=== PATIENT | male | born 2000 | race Caucasian/White ===

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

== ENCOUNTER 2019-02-18 22:01 | Inpatient (IN) | payer MEDICAID ==
[~2019-02-18] VITALS: Ht 180.3 cm; Wt 58.5 kg
[~2019-02-18 22:01] MED LIST: HYDR-3237 PO
--- NOTE | 2019-02-18 22:25 | NUR ---
ASSESSMENT MADE. ERP AT BEDSIDE. C/O SI/SA.URINE OBTAINED AND SENT TO LAB.
--- NOTE | 2019-02-18 22:28 | NUR ---
ALL BELONGINGS REMOVED , 2 PLASTIC BAGS AND PLACED IN LOCKER.
--- NOTE | 2019-02-18 22:28 | NUR ---
PATIENT TOOK ALL HIS PAIN MEDICATION ( PERCOCET ) YESTERDAY AND TRIED TO DROWN HIMSELF IN THE BATHROOM.
--- NOTE | 2019-02-18 22:32 | NUR ---
SBAR report received from anali RNVicente. Pt resting on mallory parekh and mini lab operator at bedside. Urine sent to lab.
[2019-02-18 22:56] LABS: AMPHETAMINE SCREEN, URINE Negative (Negative); BARBITURATE SCREEN, URINE Negative (Negative); BENZODIAZEPINE SCREEN, URINE Negative (Negative); CANNABINOID SCREEN, URINE Negative (Negative); COCAINE SCREEN, URINE Negative (Negative); METHADONE SCREEN, URINE Negative (Negative); OPIATE SCREEN, URINE Positive (Negative)
[2019-02-18 23:14] LABS: ALANINE AMINOTRANSFERASE 26 U/L (12-78); ALBUMIN 3.9 g/dL (3.4-5.0); ANION GAP 5 mmol/L (5-15); CALCIUM 8.9 mg/dL (8.5-10.1); CHLORIDE 108 mmol/L (98-107); SALICYLATE LEVEL 1.8 mg/dL (2.8-20.0)
[2019-02-18 23:17] LABS: ACETAMINOPHEN < 2 mcg/mL (10-30); ALKALINE PHOSPHATASE 78 U/L (45-117); BILIRUBIN,TOTAL 0.3 mg/dL (0.2-1.0); CREATININE 0.92 mg/dL (0.7-1.3); TOTAL PROTEIN 8.3 g/dL (6.4-8.2)
[2019-02-18 23:45] LABS: BASOPHILS # (AUTO) 0.02 x10^3/uL (0-0.3); BASOPHILS % (AUTO) 0 % (0-1); EOSINOPHILS # (AUTO) 0.07 x10^3/uL (0-0.8); EOSINOPHILS % (AUTO) 1 % (1-7); LYMPHOCYTES # (AUTO) 2.22 x10^3/uL (1-6.1); LYMPHOCYTES % (AUTO) 26 % (22-44); MD NO; MEAN CORPUSCULAR HEMOGLOBIN 29.6 pg (27.5-34.5); MEAN CORPUSCULAR HGB CONC 32.9 g/dL (33.2-36.2); MEAN CORPUSCULAR VOLUME 90.1 fL (81-97); MEAN PLATELET VOLUME 6.9 fL (7.4-10.4); MONOCYTES % (AUTO) 11 % (2-9); NEUTROPHILS # (AUTO) 5.32 x10^3/uL (1.8-8.0); NEUTROPHILS % (AUTO) 62 % (42-75); PLATELET COUNT 280 x10^3/uL (130-400); RED BLOOD COUNT 5.22 x10^6/uL (4.38-5.82)
--- NOTE | 2019-02-19 00:10 | NUR ---
Pt resting on gurney, calm and cooperative. Mom at bedside.
--- NOTE | 2019-02-19 00:33 | NUR ---
Dr. Sorensen at bedside to discuss ED findings and POC.
--- NOTE | 2019-02-19 00:55 | NUR ---
SBAR report given to Dr. Camacho, SOC. Robot in room.
--- NOTE | 2019-02-19 01:00 | NUR ---
Pt speaking with Dr. Silveira, SOC.
--- NOTE | 2019-02-19 02:29 | NUR ---
Patient with medicaid traditional insurance so packet faxed to [facility] and Tima Naylor. Conformations received
[2019-02-19] MEDS ORDERED: DOCUSATE 100 MG CAPSULE PO PRN (02:30)
[2019-02-19] MEDS ORDERED: LORazepam 2 MG/ML, 1ML IM PRN (02:30)
[2019-02-19] MEDS ORDERED: ONDANSETRON ODT 4 MG PO PRN (02:30)
--- NOTE | 2019-02-19 02:35 | NUR ---
PT SLEEPING AT THIS TIME. SITTER AT DOORWAY AND WILL CONT TO MONITOR.
--- NOTE | 2019-02-19 02:42 | NUR ---
Rosetta De La Torre - for updates
--- NOTE | 2019-02-19 04:30 | NUR ---
PT SLEEPING AT THIS TIME. SITTER AT DOORWAY AND WILL CONT TO MONITOR.
--- NOTE | 2019-02-19 04:38 | NUR ---
REPORT FROM ANAND BINGHAM. PT SLEEPING WITH NO NEEDS AT THIS TIME. SITTER IN VIEW OF PT.
--- NOTE | 2019-02-19 05:57 | NUR ---
PT SLEEPING. EVEN RISE AND FALL OF CHEST OBSERVED. SITTER IN VIEW OF PT.
--- NOTE | 2019-02-19 07:22 | NUR ---
PT SLEEPING, MEAL ORDERED
[2019-02-19] MEDS: NICOTINE 7 MG/24 HR PATCH.TD24 TD SCH (08:30)
--- NOTE | 2019-02-19 08:49 | NUR ---
WOKE PT, BREAFAST GIVEN, PT STATES HE IS NOT HUNGRY. PT COOPERATIVE, CALM
--- NOTE | 2019-02-19 09:15 | NUR ---
MOTHER IN ROOM
--- NOTE | 2019-02-19 10:55 | NUR ---
REPORT TO 2N BELONGINGS GIVEN TO PT'S MOTHER.
[2019-02-19 11:16] VITALS: BP 101/65
[2019-02-19 19:35] VITALS: BP 107/59
[2019-02-19] MEDS: LORazepam 1MG TABLET PO PRN (20:56)
[2019-02-20 08:18] VITALS: BP 99/67
[2019-02-20] MEDS: NICOTINE 7 MG/24 HR PATCH.TD24 TD SCH (08:30)
[2019-02-20] MEDS: LORazepam 1MG TABLET PO PRN ×2 (08:42→16:52)
[2019-02-20 19:26] VITALS: BP 100/66
[2019-02-21 08:00] VITALS: BP 100/60
[2019-02-21] MEDS: NICOTINE 7 MG/24 HR PATCH.TD24 TD SCH (08:30)
== END 2019-02-21 13:44 | DRG 918 ==
LOC: ED 22:39 → EDIP 02-19 01:35 → 2N 02-19 11:13
PROVIDERS: ADMIT Internal Medicine; ATTEND Internal Medicine
DX: T40.2X2A Poisoning by other opioids, intentional self-harm, initial encounter (principal); T75.1XXA Unspecified effects of drowning and nonfatal submersion, initial encounter; R45.851 Suicidal ideations; F17.210 Nicotine dependence, cigarettes, uncomplicated; F32.9 Major depressive disorder, single episode, unspecified; X71.0XXA Intentional self-harm by drowning and submersion while in bathtub, initial encounter; Y93.89 Activity, other specified; Y92.89 Other specified places as the place of occurrence of the external cause; Y99.8 Other external cause status; Z81.8 Family history of other mental and behavioral disorders
CPT/HCPCS: 36415; 80053; 80307; 85025; 99285; G0378

== ENCOUNTER 2020-05-16 22:30 | Emergency (ER) | payer MEDICAID ==
[~2020-05-16] VITALS: Ht 180.3 cm; Wt 61.6 kg
--- NOTE | 2020-05-16 22:45 | NUR ---
assumed care of pt. pt here for SI. pt states that he wants to end his life and his current plan is to lay down on the train tracks and wait for the train to come and run him over. pt reports that he has a hx of SA x2. his first attemts was an OD on OTC sleeping pills when he was 14. pt also reports that he has a hx of a SA in which he overdosed on pills while in the bath in an attempt to drown himself. pt has no official psych Dx and takes not medications. pt denies halucinations/delusions. states that he "is manipulative and does not know how to stop". pt denies injury and has no physical c/o at this time. no apparent distress. no family at bedside. pt undressed and belongings secured. room secured and sitter present for safety. pt updated on POC Dr. Felipe has been to bedside for eval
--- NOTE | 2020-05-16 23:12 | NUR ---
report to Natasha BINGHAM
--- NOTE | 2020-05-16 23:15 | NUR ---
REPORT FROM SHANNON BINGHAM. PT RESTING. LAB AT BEDSIDE. SITTER IN VIEW OF PT.
[2020-05-16 23:23] LABS: BASOPHILS # (AUTO) 0.03 x10^3/uL (0-0.1); BASOPHILS % (AUTO) 0 % (0-1); EOSINOPHILS # (AUTO) 0.41 x10^3/uL (0-0.4); EOSINOPHILS % (AUTO) 5 % (1-7); LYMPHOCYTES # (AUTO) 3.07 x10^3/uL (1-3.4); LYMPHOCYTES % (AUTO) 39 % (22-44); MD NO; MEAN CORPUSCULAR HEMOGLOBIN 29.7 pg (27.5-34.5); MEAN CORPUSCULAR HGB CONC 32.9 g/dL (33.2-36.2); MEAN CORPUSCULAR VOLUME 90.2 fL (81-97); MEAN PLATELET VOLUME 7.3 fL (7.4-10.4); MONOCYTES # (AUTO) 0.65 x10^3/uL (0.2-0.8); MONOCYTES % (AUTO) 8 % (2-9); NEUTROPHILS # (AUTO) 3.68 x10^3/uL (1.8-6.8); NEUTROPHILS % (AUTO) 47 % (42-75); PLATELET COUNT 240 x10^3/uL (130-400); RED BLOOD COUNT 4.59 x10^6/uL (4.38-5.82); RED CELL DISTRIBUTION WIDTH 12.7 % (9.4-14.8)
[2020-05-16 23:30] LABS: ALBUMIN 3.4 g/dL (3.4-5.0); ANION GAP 6 mmol/L (5-15); CALCIUM 8.4 mg/dL (8.5-10.1); CHLORIDE 110 mmol/L (98-107); CREATININE 0.89 mg/dL (0.7-1.3)
--- NOTE | 2020-05-16 23:30 | NUR ---
SUKHDEEP RN: [facility] IS REVIEWING PT'S INFORMATION FOR ADMIT
[2020-05-16 23:32] LABS: SALICYLATE LEVEL < 1.7 mg/dL (2.8-20.0)
--- NOTE | 2020-05-17 00:05 | NUR ---
PT RESTING IN BED IN NAD. EVEN RISE AND FALL OF CHEST OBSERVED. SITTER IN VIEW OF PT.
--- NOTE | 2020-05-17 01:31 | NUR ---
PT RESTING IN BED IN NAD. EVEN RISE AND FALL OF CHEST OBSERVED. SITTER IN VIEW OF PT.
--- NOTE | 2020-05-17 01:51 | NUR ---
TELEPSYCH CAMERA PLACE IN ROOM. PT EDUCATED ON PROCESS. PT AWARE THAT UA IS STILL NEEDED. SITTER IN VIEW OF PT.
--- NOTE | 2020-05-17 02:44 | NUR ---
PT RESTING. EVEN RISE AND FALL OF CHEST OBSERVED. SITTER IN VIEW OF PT
--- NOTE | 2020-05-17 04:10 | NUR ---
PT EVALUATD BY TELEPSYCH. WAITING FOR RECOMMEDATION. PT SLEEPING IN NAD. SITTER IN VIEW OF PT.
--- NOTE | 2020-05-17 05:06 | NUR ---
PT RESTING IN BED IN NAD. EVEN RISE AND FALL OF CHEST OBSERVED. SITTER IN VIEW OF PT.
--- NOTE | 2020-05-17 06:17 | NUR ---
PT RESTING IN BED IN NAD. EVEN RISE AND FALL OF CHEST OBSERVED. SITTER IN VIEW OF PT.
--- NOTE | 2020-05-17 06:56 | NUR ---
TOOK REPORT FROM WINDY ANDERSEN RN, ASSUME CARE.
--- NOTE | 2020-05-17 07:15 | NUR ---
ROOM IS SAFE AND SECURE, PT CALM SLEEPING, RR EVEN AND UNLABORED. TAI SITTER OUTSIDE ROOM.
[2020-05-17 09:15] VITALS: BP 101/64
== END 2020-05-17 09:41 | disposition home or self-care (01) ==
LOC: ED 05-17 02:20
DX: R45.851 Suicidal ideations (principal); F32.9 Major depressive disorder, single episode, unspecified; F41.9 Anxiety disorder, unspecified
CPT/HCPCS: 36415; 80048; 80307; 82040; 85025; 99284

== ENCOUNTER 2020-05-17 07:29 | Inpatient (IN) | payer MEDICAID ==
[~2020-05-17] VITALS: Ht 180.3 cm; Wt 61.0 kg
[2020-05-17] MEDS ORDERED: ACETAMINOPHEN 325 MG TABLET PO PRN (09:00)
[2020-05-17] MEDS ORDERED: DOCUSATE 100 MG CAPSULE PO PRN (09:00)
[2020-05-17] MEDS ORDERED: POLYETHYLENE GLYCOL 17 GM PACKET PO PRN (09:00)
[2020-05-17] MEDS ORDERED: ONDANSETRON ODT 4 MG PO PRN (09:00)
[2020-05-17] MEDS ORDERED: PLEASE ENTER HEIGHT AND WEIGHT MC SCH ×2 (10:30→13:30)
[2020-05-17 10:34] VITALS: BP 91/58
[2020-05-17 11:26] LABS: ALBUMIN 3.7 g/dL (3.4-5.0); BILIRUBIN, DIRECT 0.2 mg/dL (0.1-0.2)
[2020-05-17 11:52] LABS: BILIRUBIN,INDIRECT 0.7 mg/dL (0.0-2.0); BILIRUBIN,TOTAL 0.9 mg/dL (0.2-1.0); CHOL/HDL RATIO 2.6; TOTAL PROTEIN 7.4 g/dL (6.4-8.2)
[2020-05-17 11:53] LABS: FREE T4 (FREE THYROXINE) 1.05 ng/dL (0.76-1.46); LDL/HDL RATIO 1.3 (0.5-3.0)
[2020-05-17] MEDS ORDERED: NICOTINE 14MG/24 HR PATCH.TD24 ONE (12:55)
[2020-05-17] MEDS: NICOTINE 14MG/24 HR PATCH.TD24 TD SCH (13:00)
[2020-05-17] MEDS: HYDROXYZINE PAMOATE 25MG CAP PO PRN ×2 (13:00→20:20)
[2020-05-17] MEDS: BUSPIRONE 5 MG TABLET PO SCH ×3 (15:05→20:20)
[2020-05-17 18:37] VITALS: BP 103/68
[2020-05-17] MEDS: TRAZODONE 100MG TABLET PO PRN (20:20)
[2020-05-17] MEDS: GABAPENTIN 100 MG CAPSULE PO PRN (20:20)
[2020-05-18 06:44] VITALS: BP 96/60
[2020-05-18 07:30] VITALS: BP 104/65
[2020-05-18] MEDS: BUSPIRONE 5 MG TABLET PO SCH ×3 (08:00→20:27)
[2020-05-18 09:08] LABS: MICROSCOPIC NOT IND
[2020-05-18 09:26] LABS: BARBITURATE SCREEN, URINE Negative (Negative); BENZODIAZEPINE SCREEN, URINE Negative (Negative); CANNABINOID SCREEN, URINE Negative (Negative); COCAINE SCREEN, URINE Negative (Negative); METHADONE SCREEN, URINE Negative (Negative)
[2020-05-18 09:29] LABS: AMPHETAMINE SCREEN, URINE Negative (Negative); OPIATE SCREEN, URINE Negative (Negative)
[2020-05-18] MEDS: NICOTINE 14MG/24 HR PATCH.TD24 TD SCH (13:28)
[2020-05-18 20:07] VITALS: BP 115/80
[2020-05-18] MEDS: GABAPENTIN 100 MG CAPSULE PO PRN (20:27)
[2020-05-18] MEDS: TRAZODONE 100MG TABLET PO PRN (20:27)
[2020-05-18] MEDS: HYDROXYZINE PAMOATE 25MG CAP PO PRN (20:28)
[2020-05-19 06:53] VITALS: BP 106/69
[2020-05-19] MEDS: BUSPIRONE 5 MG TABLET PO SCH ×3 (08:29→20:46)
[2020-05-19] MEDS: NICOTINE 14MG/24 HR PATCH.TD24 TD SCH (13:24)
[2020-05-19] MEDS: LORazepam 0.5MG TABLET PO PRN ×2 (14:13→20:42)
[2020-05-19 19:32] VITALS: BP 104/71
[2020-05-19] MEDS: TRAZODONE 100MG TABLET PO PRN (20:42)
[2020-05-19] MEDS: GABAPENTIN 100 MG CAPSULE PO PRN (20:42)
[2020-05-20 07:56] VITALS: BP 106/70
[2020-05-20] MEDS: BUSPIRONE 5 MG TABLET PO SCH (09:41)
[2020-05-20] MEDS ORDERED: GABA-826 PO (12:10)
[2020-05-20] MEDS ORDERED: BUSP5TAB2 PO (12:10)
[2020-05-20] MEDS ORDERED: NICO-486 TD (12:10)
[2020-05-20] MEDS ORDERED: HYDR25CA94 PO (12:10)
[2020-05-20] MEDS ORDERED: TRAZ-175 PO (12:10)
[2020-05-20] MEDS: NICOTINE 14MG/24 HR PATCH.TD24 TD SCH (13:00)
== END 2020-05-20 14:15 | disposition home or self-care (01) | DRG 885 ==
LOC: 3E 09:55
PROVIDERS: ADMIT Psychiatry & Neurology Psychosomatic Medicine; ATTEND Psychiatry & Neurology Psychosomatic Medicine
DX: F33.2 Major depressive disorder, recurrent severe without psychotic features (principal); F17.210 Nicotine dependence, cigarettes, uncomplicated; F41.0 Panic disorder [episodic paroxysmal anxiety]; F41.1 Generalized anxiety disorder; L30.9 Dermatitis, unspecified; M41.9 Scoliosis, unspecified; F12.20 Cannabis dependence, uncomplicated; G47.00 Insomnia, unspecified; Z79.899 Other long term (current) drug therapy
CPT/HCPCS: 36415; 71045; 80061; 80076; 80307; 81003; 82607; 84439; 84443; 93005

== ENCOUNTER 2021-01-23 18:17 | Inpatient (IN) | payer MEDICAID ==
[~2021-01-23] VITALS: Ht 180.3 cm; Wt 62.7 kg
[~2021-01-23 18:17] MED LIST changes: +BUSP5TAB2 PO; +GABA-826 PO; +HYDR25CA94 PO; +NICO-486 TD; +TRAZ-175 PO
[2021-01-23] MEDS ORDERED: POLYETHYLENE GLYCOL 17 GM PACKET PO PRN (21:30)
[2021-01-23] MEDS ORDERED: BISACODYL 10 MG SUPP PR PRN (21:30)
[2021-01-23] MEDS ORDERED: ACETAMINOPHEN 325 MG TABLET PO PRN (21:30)
[2021-01-23] MEDS ORDERED: ONDANSETRON ODT 4 MG PO PRN (21:30)
[2021-01-23] MEDS ORDERED: DOCUSATE 100 MG CAPSULE PO PRN (21:30)
[2021-01-24 11:42] VITALS: BP 103/60
[2021-01-24] MEDS ORDERED: PLEASE ENTER HEIGHT AND WEIGHT MC SCH (12:00)
[2021-01-24 12:54] LABS: CHOL/HDL RATIO 3.7; FREE T4 (FREE THYROXINE) 1.23 ng/dL (0.76-1.46); LDL/HDL RATIO 2.2 (0.5-3.0)
[2021-01-24] MEDS: DULOXETINE 30 MG CAPSULE.DR PO SCH (13:07)
[2021-01-24] MEDS ORDERED: ESCI20TA8 PO (13:20)
[2021-01-24] MEDS ORDERED: ARIP10TA33 PO (13:20)
[2021-01-24 20:04] VITALS: BP 100/69
[2021-01-25 07:47] VITALS: BP 107/68
[2021-01-25] MEDS: DULOXETINE 30 MG CAPSULE.DR PO SCH (08:39)
[2021-01-25 19:45] VITALS: BP 118/74
[2021-01-25] MEDS: DOXEPIN 25 MG CAPSULE PO SCH (20:36)
[2021-01-26 07:15] VITALS: BP 105/69
[2021-01-26] MEDS: DULOXETINE 30 MG CAPSULE.DR PO SCH ×2 (07:52→12:17)
[2021-01-26 13:11] LABS: MICROSCOPIC NOT IND
[2021-01-26 19:33] VITALS: BP 110/68
[2021-01-26] MEDS: DOXEPIN 25 MG CAPSULE PO SCH (20:03)
[2021-01-27 07:17] VITALS: BP 103/66
[2021-01-27] MEDS: DULOXETINE 30 MG CAPSULE.DR PO SCH (08:02)
[2021-01-27 19:30] VITALS: BP 100/78
[2021-01-27] MEDS: DOXEPIN 25 MG CAPSULE PO SCH (20:14)
[2021-01-28 07:59] VITALS: BP 96/66
[2021-01-28] MEDS: DULOXETINE 30 MG CAPSULE.DR PO SCH (09:06)
[2021-01-28] MEDS ORDERED: DULO30CA2 PO (11:39)
[2021-01-28] MEDS ORDERED: DOXE25CA PO (11:39)
[2021-01-28 19:40] VITALS: BP 95/60
[2021-01-28] MEDS: DOXEPIN 25 MG CAPSULE PO SCH (20:18)
[2021-01-29 08:01] VITALS: BP 100/70
[2021-01-29] MEDS: DULOXETINE 30 MG CAPSULE.DR PO SCH (08:51)
== END 2021-01-29 15:39 | disposition home or self-care (01) | DRG 751 ==
LOC: 3E 01-24 11:34
PROVIDERS: ADMIT Psychiatry & Neurology Psychosomatic Medicine; ATTEND Psychiatry & Neurology Psychosomatic Medicine
DX: F33.2 Major depressive disorder, recurrent severe without psychotic features (principal); M41.9 Scoliosis, unspecified; F17.200 Nicotine dependence, unspecified, uncomplicated; F41.0 Panic disorder [episodic paroxysmal anxiety]; F41.1 Generalized anxiety disorder; G47.00 Insomnia, unspecified; L30.9 Dermatitis, unspecified; Z59.0 Homelessness; Z79.899 Other long term (current) drug therapy; Z91.5 Personal history of self-harm; Z72.89 Other problems related to lifestyle
CPT/HCPCS: 36415; 71045; 80061; 81003; 82607; 84439; 84443; 93005

== ENCOUNTER 2021-05-05 12:30 | Inpatient (IN) | payer MEDICAID ==
[~2021-05-05] VITALS: Ht 180.3 cm; Wt 57.0 kg
[~2021-05-05 12:30] MED LIST changes: +ARIP10TA33 PO; +DOXE25CA PO; +DULO30CA2 PO; +ESCI20TA8 PO
[2021-05-05] MEDS ORDERED: POLYETHYLENE GLYCOL 17 GM PACKET PO PRN (15:00)
[2021-05-05] MEDS ORDERED: ACETAMINOPHEN 325 MG TABLET PO PRN (15:00)
[2021-05-05] MEDS ORDERED: ONDANSETRON ODT 4 MG PO PRN (15:00)
[2021-05-05] MEDS ORDERED: DOCUSATE 100 MG CAPSULE PO PRN (15:00)
[2021-05-05] MEDS ORDERED: BISACODYL 10 MG SUPP PR PRN (15:00)
[2021-05-05 17:23] VITALS: BP 117/80
[2021-05-05] MEDS ORDERED: PLEASE ENTER HEIGHT AND WEIGHT MC SCH (18:30)
[2021-05-05 19:43] VITALS: BP 100/61
[2021-05-06 05:34] LABS: MEAN CORPUSCULAR HEMOGLOBIN 30.1 pg (27.5-34.5); MEAN CORPUSCULAR HGB CONC 34.3 g/dL (33.2-36.2); MEAN PLATELET VOLUME 7.6 fL (7.4-10.4); PLATELET COUNT 255 x10^3/uL (130-400); RED BLOOD COUNT 4.69 x10^6/uL (4.38-5.82); RED CELL DISTRIBUTION WIDTH 13.6 % (9.4-14.8)
[2021-05-06 05:41] LABS: ALANINE AMINOTRANSFERASE 38 U/L (12-78); ALBUMIN 3.4 g/dL (3.4-5.0); ANION GAP 5 mmol/L (5-15); CALCIUM 8.2 mg/dL (8.5-10.1); CHLORIDE 107 mmol/L (98-107)
[2021-05-06 06:04] LABS: <PLATELET ESTIMATE> ADEQUATE; <PLT MORPHOLOGY> NORMAL PLT MORPH; <RBC MORPHOLOGY> NORMAL; ALKALINE PHOSPHATASE 73 U/L (45-117); EOS#(MANUAL) 0.31 x10^3/uL (0.0-0.4); EOS% (MANUAL) 5 % (1-7); FREE T4 (FREE THYROXINE) 1.07 ng/dL (0.76-1.46); LYMPH#(MANUAL) 2.48 x10^3/uL (1-3.4); LYMPHS% (MANUAL) 40 % (22-44); MONOS#(MANUAL) 0.56 x10^3/uL (0.3-2.7); MONOS% (MANUAL) 9 % (2-9); REACTIVE LYMPHS # (MANUAL) 1.05 x10^3/uL (0-0); REACTIVE LYMPHS % (MANUAL) 17 % (0-0); SEGS% (MANUAL) 29 % (42-75); TOTAL PROTEIN 7.3 g/dL (6.4-8.2)
[2021-05-06 07:23] VITALS: BP 108/74
[2021-05-06] MEDS ORDERED: NICOTINE 14MG/24 HR PATCH.TD24 ONE (15:47)
[2021-05-06] MEDS: ARIPIPRAZOLE 10 MG TABLET PO SCH (15:49)
[2021-05-06] MEDS: DULOXETINE 30 MG CAPSULE.DR PO SCH (15:50)
[2021-05-06] MEDS: NICOTINE 14MG/24 HR PATCH.TD24 TD SCH (15:50)
[2021-05-06 19:22] VITALS: BP 113/68
[2021-05-06] MEDS: MELATONIN 5 MG TABLET PO SCH (20:48)
[2021-05-07 07:25] VITALS: BP 88/54
[2021-05-07] MEDS: DULOXETINE 30 MG CAPSULE.DR PO SCH (08:52)
[2021-05-07] MEDS: ARIPIPRAZOLE 10 MG TABLET PO SCH (08:53)
[2021-05-07] MEDS: NICOTINE 14MG/24 HR PATCH.TD24 TD SCH (15:58)
[2021-05-07 19:20] VITALS: BP 105/62
[2021-05-07] MEDS: CARBAMAZEPINE 200 MG TABLET PO SCH (20:48)
[2021-05-07] MEDS: MELATONIN 5 MG TABLET PO SCH (20:48)
[2021-05-08 07:22] VITALS: BP 101/67
[2021-05-08] MEDS: DULOXETINE 30 MG CAPSULE.DR PO SCH (09:00)
[2021-05-08] MEDS: ARIPIPRAZOLE 10 MG TABLET PO SCH (09:01)
[2021-05-08] MEDS: NICOTINE 14MG/24 HR PATCH.TD24 TD SCH (17:30)
[2021-05-08 19:35] VITALS: BP 107/80
[2021-05-08] MEDS ORDERED: LORazepam 1MG TABLET PO ONE (20:30)
[2021-05-08] MEDS: MELATONIN 5 MG TABLET PO SCH (20:32)
[2021-05-08] MEDS: CARBAMAZEPINE 200 MG TABLET PO SCH (20:32)
[2021-05-09 07:34] VITALS: BP 96/62
[2021-05-09] MEDS: ARIPIPRAZOLE 10 MG TABLET PO SCH (09:10)
[2021-05-09] MEDS: NICOTINE 14MG/24 HR PATCH.TD24 TD SCH (09:10)
[2021-05-09] MEDS: DULOXETINE 30 MG CAPSULE.DR PO SCH (09:10)
[2021-05-09] MEDS ORDERED: MELA5TAB14 PO (14:50)
[2021-05-09] MEDS ORDERED: ARIP10TA33 PO (14:50)
[2021-05-09] MEDS ORDERED: CARB200T4 PO (14:50)
[2021-05-09] MEDS ORDERED: DULO30CA2 PO (14:50)
[2021-05-09] MEDS ORDERED: NICO-486 TD (14:50)
[2021-05-09 19:28] VITALS: BP 107/72
[2021-05-09] MEDS: CARBAMAZEPINE 200 MG TABLET PO SCH (20:38)
[2021-05-09] MEDS: MELATONIN 5 MG TABLET PO SCH (20:38)
[2021-05-10 07:38] VITALS: BP_SYST 106; BP_SYST 108; BP_DIAS 67; BP_DIAS 68
[2021-05-10 07:44] VITALS: BP 106/67
[2021-05-10] MEDS: DULOXETINE 30 MG CAPSULE.DR PO SCH (09:00)
[2021-05-10] MEDS: ARIPIPRAZOLE 10 MG TABLET PO SCH (09:00)
[2021-05-10] MEDS: NICOTINE 14MG/24 HR PATCH.TD24 TD SCH (09:00)
== END 2021-05-10 13:50 | disposition home or self-care (01) | DRG 885 ==
LOC: 3E 14:32
PROVIDERS: ADMIT Psychiatry & Neurology Psychosomatic Medicine; ATTEND Psychiatry & Neurology Psychosomatic Medicine
DX: F31.30 Bipolar disorder, current episode depressed, mild or moderate severity, unspecified (principal); R45.851 Suicidal ideations; F17.200 Nicotine dependence, unspecified, uncomplicated; G47.00 Insomnia, unspecified; L30.9 Dermatitis, unspecified; M41.9 Scoliosis, unspecified; Z91.5 Personal history of self-harm; Z79.899 Other long term (current) drug therapy
CPT/HCPCS: 36415; 80053; 84439; 84443; 85025; 93005